=== PATIENT | male | born 1990 | race Two or more races ===

== ENCOUNTER 2017-08-18 03:00 | Emergency (ER) | payer MEDICAID ==
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
== END 2017-08-18 04:56 | disposition home or self-care (01) ==
LOC: JP.ED 03:00
DX: S02.82XA Fracture of other specified skull and facial bones, left side, initial encounter for closed fracture (principal); S00.83XA Contusion of other part of head, initial encounter; F10.129 Alcohol abuse with intoxication, unspecified; Y04.0XXA Assault by unarmed brawl or fight, initial encounter
CPT/HCPCS: 70486; 99284-25